=== PATIENT | male | born 1965 | race Caucasian/White ===

== ENCOUNTER 2016-11-06 22:37 | Inpatient (IN) | payer OTHER ==
[~2016-11-06] VITALS: Ht 188 cm; Wt 154.2 kg
[~2016-11-06 22:37] MED LIST: ADVAIR 250/501 DISK IH; ATARAX,VISTARIL25 MG PO; Advair 250/50 Diskus IH; Advair HFA 115/21 IH; BYSTOLIC10 MG PO; COUMADIN5 MG PO; Ceftin PO; Habitrol,Nicoderm CQ TD; LASIX80 MG PO; LORAZEPAM0.5 MG PO; LOVENOX150 MG/1 M SC; Lasix PO; Levaquin PO; MELATONIN TR 51 EACH PO; PERCOCET 5/31 TABLET PO; PREDNISONE PO; PREVACID30 MG PO; PROVENTIL,2.5 MG/0.5 IH; PROVENTIL,200 INHALA IH; PROVENTIL,VENTOL2 MG; Prevacid PO; Proventil,Ventolin H IH; Robitussin, Organidi PO; SPIRIVA1 INHALATI IH; SYMBICORT60 INHALAT IH; TOPROL XL100 MG PO; VENTOLIN HFA18 GM IH; ZOFRAN4 MG PO; predniSONE PO; proventil inhaler
[2016-11-07] VITALS (15 sets, daily range): BP systolic 119–155; BP diastolic 62–81
[2016-11-07 00:30] LABS: BASOPHIL COUNT 0.1 K/uL (0-0.1); EOSINOPHIL (%) 6.6 % (0-5); EOSINOPHIL COUNT 0.6 K/uL (0-0.3); HEMATOCRIT 50.2 % (38.0-50.0); IMMATURE GRANULOCYTE (%) 0.2 % (0.0-0.7); INSTRUMENT ABS NEUTROPHIL CT 4.3 K/uL; LYMPHOCYTE COUNT 2.8 K/uL (1.0-2.8); MCH 29.8 PG (29.0-34.0); MCHC 33.7 G/DL (30.0-36.0); MCV 88.4 FL (86-99); MEAN PLAT.VOLUME 8.6 uM^3 (9.0-12.4); MONOCYTE (%) 9.4 % (3-12); MONOCYTE COUNT 0.8 K/uL (0-0.8); NEUTROPHIL (%) 50.5 % (45-76); NEUTROPHIL COUNT 4.3 K/uL (1.8-6.4); PLATELET COUNT 193 K/uL (156-360); RBC DIS.WIDTH-CV 12.5 % (11.8-14.6); RBC DIS.WIDTH-SD 40.5 % (39-53); RED BLOOD COUNT 5.68 M/uL (4.00-5.50); WHITE BLOOD COUNT 8.5 K/uL (4.1-10.2)
[2016-11-07 00:35] LABS: INFLUENZA A VIRAL ANTIGEN NEGATIVE; INFLUENZA B VIRAL ANTIGEN NEGATIVE
[2016-11-07 00:41] LABS: CHLORIDE 96 mEq/L (99-109); POTASSIUM 3.9 mEq/L (3.7-5.4); SODIUM 134 mEq/L (136-147)
[2016-11-07 00:43] LABS: D-DIMER ELISA > 4.00 mg/L FEU (< 0.57); GLUCOSE 86 mg/dL (70-99)
[2016-11-07 00:45] LABS: ANION GAP 11 MEQ/L (2-14)
[2016-11-07 00:47] LABS: GFR ESTIMATE (CALCULATED) > 59 mL/min/
[2016-11-07 00:48] LABS: UREA NITROGEN (BUN) 12 mg/dL (9-23)
[2016-11-07 01:57] LABS: PROTHROMBIN TIME 10.3 (9.2-11.2); PTT 25.9 (25-32)
[2016-11-07 02:18] LABS: TROP-I INTERPRETATION NEGATIVE; TROPONIN-I < 0.01 ng/mL (0.0-0.30)
[2016-11-07 07:23] LABS: BASE EXCESS 2.9 mEq/L (-3 to +3); BICARBONATE 27.9 mEq/L (22-26); CARBOXY HGB 2.7 % (0-5); COMMENTS - BLOOD GASES AC+; DEVICE NASAL CANNULA; METHEMOGLOBIN 1.3 % (0-1.5); O2 FLOW 2 L/MIN; PCO2 43 mm Hg (35-45); PO2 65 mm Hg (80-100); SITE RR; pH 7.42 (7.35-7.45)
[2016-11-07 07:24] LABS: TOTAL RESP RATE 22 resp/min
[2016-11-07 07:32] LABS: METH RESISTANT S AUREUS PCR NEGATIVE (NEGATIVE); PROBE CHECK PASS; SPECIMEN PROCESSING CONTROL PASS
[2016-11-07 08:36] LABS: EOSINOPHIL (%) 0.3 % (0-5); HEMATOCRIT 45.5 % (38.0-50.0); IMMATURE GRANULOCYTE (%) 0.5 % (0.0-0.7); INSTRUMENT ABS NEUTROPHIL CT 6.7 K/uL; LYMPHOCYTE COUNT 0.9 K/uL (1.0-2.8); MCH 29.6 PG (29.0-34.0); MCHC 33.4 G/DL (30.0-36.0); MCV 88.5 FL (86-99); MEAN PLAT.VOLUME 8.9 uM^3 (9.0-12.4); MONOCYTE (%) 1.7 % (3-12); MONOCYTE COUNT 0.1 K/uL (0-0.8); NEUTROPHIL COUNT 6.7 K/uL (1.8-6.4); PLATELET COUNT 180 K/uL (156-360); RBC DIS.WIDTH-CV 12.4 % (11.8-14.6); RBC DIS.WIDTH-SD 40.7 % (39-53); RED BLOOD COUNT 5.14 M/uL (4.00-5.50); WHITE BLOOD COUNT 7.8 K/uL (4.1-10.2)
[2016-11-07 09:02] LABS: ALKALINE PHOSPHATASE 74 IU/L (3-129); ANION GAP 8 MEQ/L (2-14); CHLORIDE 94 MEQ/L (99-109); GFR ESTIMATE (CALCULATED) > 59 mL/min/; POTASSIUM 3.9 MEQ/L (3.7-5.4); SAMPLE HEMOLYSIS CHECK 0; SAMPLE ICTERIC CHECK 0; SAMPLE LIPEMIA CHECK 0; TOTAL BILIRUBIN 0.4 MG/DL (0.0-1.0); UREA NITROGEN (BUN) 13 mg/dL (9-23)
[2016-11-07 09:06] LABS: GLUCOSE 176 mg/dL (70-99); SODIUM 127 MEQ/L (136-147)
[2016-11-07] MEDS ORDERED: SYMBICORT60 INHALAT IH (10:12)
[2016-11-07] MEDS ORDERED: LANSOPRAZOLE30 MG PO (10:12)
[2016-11-07 17:15] LABS: EOSINOPHIL (%) 0.2 % (0-5); HEMATOCRIT 45.5 % (38.0-50.0); IMMATURE GRANULOCYTE (%) 0.4 % (0.0-0.7); IMMATURE GRANULOCYTE COUNT 0.1 K/uL; INSTRUMENT ABS NEUTROPHIL CT 11.4 K/uL; LYMPHOCYTE COUNT 1.4 K/uL (1.0-2.8); MCH 29.6 PG (29.0-34.0); MCHC 33.4 G/DL (30.0-36.0); MCV 88.5 FL (86-99); MONOCYTE (%) 6.2 % (3-12); MONOCYTE COUNT 0.9 K/uL (0-0.8); NEUTROPHIL (%) 82.9 % (45-76); NEUTROPHIL COUNT 11.4 K/uL (1.8-6.4); PLATELET COUNT 190 K/uL (156-360); RBC DIS.WIDTH-CV 12.3 % (11.8-14.6); RBC DIS.WIDTH-SD 40.5 % (39-53); RED BLOOD COUNT 5.14 M/uL (4.00-5.50)
[2016-11-07 17:16] LABS: WHITE BLOOD COUNT 13.7 K/uL (4.1-10.2)
[2016-11-07 22:22] LABS: ANION GAP 7 MEQ/L (2-14); GFR ESTIMATE (CALCULATED) > 59 mL/min/; POTASSIUM 3.9 MEQ/L (3.7-5.4); SAMPLE HEMOLYSIS CHECK 0; SAMPLE ICTERIC CHECK 0; SAMPLE LIPEMIA CHECK 0; UREA NITROGEN (BUN) 17 mg/dL (9-23)
[2016-11-07 22:25] LABS: CHLORIDE 106 MEQ/L (99-109); GLUCOSE 98 mg/dL (70-99); SODIUM 139 MEQ/L (136-147)
[2016-11-08] VITALS (16 sets, daily range): BP systolic 112–149; BP diastolic 51–97
[2016-11-08 05:21] LABS: CHLORIDE 105 mEq/L (99-109); POTASSIUM 3.5 mEq/L (3.7-5.4); SODIUM 138 mEq/L (136-147)
[2016-11-08 05:22] LABS: BASOPHIL COUNT 0.1 K/uL (0-0.1); EOSINOPHIL (%) 2.1 % (0-5); EOSINOPHIL COUNT 0.3 K/uL (0-0.3); HEMATOCRIT 41.5 % (38.0-50.0); IMMATURE GRANULOCYTE (%) 0.3 % (0.0-0.7); INSTRUMENT ABS NEUTROPHIL CT 8.1 K/uL; LYMPHOCYTE COUNT 3.1 K/uL (1.0-2.8); MCH 30.2 PG (29.0-34.0); MCHC 33.7 G/DL (30.0-36.0); MCV 89.4 FL (86-99); MEAN PLAT.VOLUME 9.1 uM^3 (9.0-12.4); MONOCYTE (%) 7.3 % (3-12); MONOCYTE COUNT 0.9 K/uL (0-0.8); NEUTROPHIL (%) 64.8 % (45-76); NEUTROPHIL COUNT 8.1 K/uL (1.8-6.4); PLATELET COUNT 167 K/uL (156-360); RBC DIS.WIDTH-CV 12.8 % (11.8-14.6); RBC DIS.WIDTH-SD 41.9 % (39-53); RED BLOOD COUNT 4.64 M/uL (4.00-5.50); WHITE BLOOD COUNT 12.5 K/uL (4.1-10.2)
[2016-11-08 05:23] LABS: GLUCOSE 109 mg/dL (70-99)
[2016-11-08 05:24] LABS: ANION GAP 9 MEQ/L (2-14)
[2016-11-08 05:26] LABS: GFR ESTIMATE (CALCULATED) > 59 mL/min/
[2016-11-08 05:27] LABS: UREA NITROGEN (BUN) 15 mg/dL (9-23)
[2016-11-08 06:50] LABS: Estimated Average Glucose 123 mg/dL (70-123); HEMOGLOBIN A1c (GLYCOHEMOGLOB) 5.9 % HGB (Below 5.7)
[2016-11-09] VITALS: BP 118/76
[2016-11-09 06:15] VITALS: BP 142/74
[2016-11-09 10:00] VITALS: BP 116/77
[2016-11-09] MEDS ORDERED: ELIQUIS5 MG PO ×2 (12:20→12:21)
[2016-11-12 19:02] LABS: DRVVT Mixing Study Interp Not Indicated (()); PROTEIN C FUNCTIONAL ACTIVITY+ 132 % (70-180); PTT-LA 70 sec (<=40); Protein S, Free 127 % normal (57-171); Thrombosis Consult Level Limited (()); dRVVT Screen 38 sec (<=45)
[2016-11-13 09:15] LABS: ANTITHROMBIN III ACTIVITY+ 75 % activi (80-120)
== END 2016-11-09 13:36 | disposition home or self-care (01) | DRG 252 ==
LOC: EME 22:37 → EDOF 11-07 03:59 → 4WEST 11-07 03:59
PROVIDERS: Emergency Medicine; Internal Medicine Hematology & Oncology; Internal Medicine Pulmonary Disease; Surgery Surgical Critical Care
PROC: 06H03DZ Insertion of Intraluminal Device into Inferior Vena Cava, Percutaneous Approach (ICD-10-PCS; principal; 2016-11-09)
DX: I82.433 Acute embolism and thrombosis of popliteal vein, bilateral (principal); I26.92 Saddle embolus of pulmonary artery without acute cor pulmonale; D68.59 Other primary thrombophilia; J44.9 Chronic obstructive pulmonary disease, unspecified; J45.909 Unspecified asthma, uncomplicated; F17.210 Nicotine dependence, cigarettes, uncomplicated; G47.33 Obstructive sleep apnea (adult) (pediatric); I10 Essential (primary) hypertension; K21.9 Gastro-esophageal reflux disease without esophagitis; I51.9 Heart disease, unspecified; Z86.718 Personal history of other venous thrombosis and embolism
CPT/HCPCS: 36600; 71010; 71020; 71275; 80048; 80048 91; 80053; 81240 90; 82803; 83036; 83090 90; 83605; 83880; 84484; 85025; 85025 91; 85240 90; 85300 90; 85303 90; 85305 90; 85306 90; 85307 90; 85379; 85610; 85613 90; 85730; 85730 90; 86146 90; 86147 90; 87040; 87070; 87205; 87502; 87641; 93005; 93306; 93970; 94640; 94640 76; 94799; 99202; 99281; 99285; C1769; C1894; J0690; J1644; J2250; J2930; J3010; J7030